=== PATIENT | female | born 1975 | race Caucasian/White ===

== ENCOUNTER 2018-08-27 23:34 | Inpatient (IN) | payer OTHER ==
[~2018-08-27] VITALS: Ht 165.1 cm; Wt 81.7 kg
--- NOTE | ~2018-08-27 | EKG ---
[place], [place] ELECTROCARDIOGRAM REPORT NAME: NENO HERNANDEZ UNIT #: [id number] ROOM: 405 DOCTOR: YELITZA DRAFT REPORT BIRTHDATE: [birth year] [facility] Test Date: 2018-08-28 Test Time: 02:31:58 Pat Name: NENO HERNANDEZ Department: Room: [facility] Gender: F Process Control Specialist: Edward Nesbitt : 1975 Requested By: BRETT DAVIS Order Number: [id number] Reading MD: Shun John MD Measurements Intervals [place] Rate: 58 P: 59 W[place]: 146 QRS: 41 QRSD: 102 T: 37 QT: 461 QTc: 453 Interpretive Statements Sinus rhythm Compared to previous day, PVC is no longer seen Otherwise, no change Electronically Signed On 08-28-2018 15:47:32 PDT by Shun John MD CM:EKGRPT:ELECTROCARDIOGRAM REPORT [id number] BRETT DAVIS MD EPIPHANY DRAFT REPORT BRETT DAVIS MD
--- NOTE | ~2018-08-27 | EKG ---
[place], [place] ELECTROCARDIOGRAM REPORT NAME: NENO HERNANDEZ UNIT #: [id number] ROOM: 405 DOCTOR: EPIPHANY DRAFT REPORT BIRTHDATE: [birth year] [facility] Test Date: 2018-08-27 Test Time: 23:41:16 Pat Name: NENO HERNANDEZ Department: Room: 405 Gender: F Systems Support Specialist: Elio Welsh : 1975 Requested By: BRETT DAVIS Order Number: [id number] Reading MD: Shun John MD Measurements Intervals [place] Rate: 77 P: 74 [place]: 140 QRS: 38 QRSD: 96 T: 60 QT: 405 QTc: 459 Interpretive Statements Sinus rhythm with occasional PVC Baseline wander in lead(s) I,II,aVR,V3,V4,V5,V6 Electronically Signed On 08-28-2018 15:45:55 PDT by Shun John MD CM:EKGRPT:ELECTROCARDIOGRAM REPORT [id number] BRETT DAVIS MD EPIPHANY DRAFT REPORT BRETT DAVIS MD
--- NOTE | ~2018-08-27 | EKG ---
[place], [place] ELECTROCARDIOGRAM REPORT NAME: NENO HERNANDEZ UNIT #: [id number] ROOM: 405 DOCTOR: EPIPHANY DRAFT REPORT BIRTHDATE: [birth year] [facility] Test Date: 2018-08-28 Test Time: 05:26:50 Pat Name: NENO HERNANDEZ Department: Room: 405 Gender: F Natural Resources Extension Educator: Edward Nesbitt : 1975 Requested By: BRETT DAVIS Order Number: [id number] Reading MD: Shun John MD Measurements Intervals [place] Rate: 58 P: 63 [place]: 145 QRS: 45 QRSD: 105 T: 54 QT: 454 QTc: 446 Interpretive Statements Sinus rhythm No change from earlier ECG this date. Electronically Signed On 08-28-2018 15:48:47 PDT by Shun John MD CM:EKGRPT:ELECTROCARDIOGRAM REPORT [id number] BRETT DAVIS MD EPIPHANY DRAFT REPORT BRETT DAVIS MD
--- NOTE | ~2018-08-27 | PR ---
[place], [place] PROGRESS NOTE NAME: NENO HERNANDEZ [facility] #: [id number] UNIT #: [id number] ROOM: 405 DOCTOR: GINI YIP MD BIRTHDATE: [birth year] DOS: 08/29/2018 CARDIOLOGY PROGRESS NOTE SUBJECTIVE: The patient was seen at her bedside today 08/29/2018 for followup of chest discomfort. Since her hospitalization, her symptoms have improved. Once again, she notes that if she stretches her left side that the symptoms improve. She has not had any changes on the monitor and cardiac biomarkers remain normal. PHYSICAL EXAMINATION: VITAL SIGNS: Today, her pulse is 60 and regular, blood pressure is 102/54. She is afebrile. NECK: Supple. She has no jugular distention. Carotids are full. LUNGS: Respirations are unlabored. Chest is clear. HEART: Has a regular rhythm with a soft S4 gallop. She has a grade 2/6 systolic ejection murmur along the left sternal border, but no diastolic murmurs. The PMI is not displaced. There is no precordial heave, lift or thrill. ABDOMEN: Soft and normally active. EXTREMITIES: Showed no edema. IMPRESSION: 1. Atypical chest pain. 2. History of Anson thyroiditis. 3. History of fibromyalgia. PLAN: We will proceed with an exercise myocardial perfusion study and echocardiogram within the next 24 hours. Further recommendations will depend upon the results of her testing. I thank the hospitalist physicians for asking our advice regarding her care. GINI YIP MD CM:PNTRANS [id number] GINI YIP MD 08/29/18 2213 interface
--- NOTE | ~2018-08-27 | PR ---
[place], [place] PROGRESS NOTE NAME: NENO HERNANDEZ [facility] #: [id number] UNIT #: [id number] ROOM: 405 DOCTOR: GINI YIP MD BIRTHDATE: [birth year] DOS: 08/30/2018 SUBJECTIVE: The patient was seen today 08/30/2018 in the Cardiology Department prior to her stress test. She states that she continues to have an aching sensation in her left anterior chest and did have sharp pains in her chest last evening when she tried to stretch her muscles. She denies diaphoresis, shortness of breath or nausea. PHYSICAL EXAMINATION: VITAL SIGNS: Pulse is 73 and regular, blood pressure is 107/65. She is afebrile. NECK: Supple. She has no jugular distention. Carotids are full. LUNGS: Respirations are unlabored. Her chest is clear to auscultation and percussion. HEART: Has a regular rhythm. She has a fourth heart sound, but no third heart sound. ABDOMEN: Benign. EXTREMITIES: Showed no edema. IMPRESSION: 1. Atypical chest pain. 2. History of Anson thyroiditis. 3. History of fibromyalgia. PLAN: We will proceed with an exercise stress test today. Further recommendations will depend upon the results of the test. I thank the hospitalist physicians for asking our advice regarding her care. GINI YIP MD CM:PNTRANS [id number] GINI YIP MD 08/30/18 1207 interface
--- NOTE | ~2018-08-27 | CON ---
[place], [place] REPORT OF CONSULTATION NAME: NENO HERNANDEZ [facility] [id number] UNIT #: [id number] ROOM: 405 DOCTOR: GINI YIP MD BIRTHDATE: [birth year] DOS: 08/28/2018 REASON FOR CONSULTATION: Chest pain. HISTORY OF PRESENT ILLNESS: The patient is a 43-year-old woman who does have a history of morbid obesity, for which she underwent gastric bypass surgery in 2008. As part of her evaluation prior to the surgery, she did undergo a stress test which showed anteroapical ischemia; however, a subsequent cardiac catheterization was reportedly normal and she underwent the surgery uneventfully. She states that since that time, she has had episodes of chest pain. She mostly associates these with when her blood count is low. She has had a long history of anemia and when her blood count is less than 7, she states that her chest will ache. The night before last while at rest, she developed a pain in the left side of her chest, which was similar to what she has had in the past. This was located to the area behind her breast. She states that it radiated into her back, neck and left arm. She has had pleuritic chest pains in the past, but this one was different in that she had radiation of the pain and there was not much of a pleuritic component. She waited until yesterday and continued to have the pain, and therefore came into the hospital last evening. Despite the fact that she has had pain for over 36 hours now, she has no EKG changes and serial cardiac troponin levels have been entirely normal. The patient does note that if she lays on her right side and stretches her left arm over her head, the pains will improve. She also notes that the sharp shooting pains that she had going into her neck and arm have decreased dramatically since her arrival to the hospital, but the aching sensation in her left chest has not changed much. She denies that the pains are associated with eating. As noted, she has had pleuritic pains in the past, but not this time. She denies any associated nausea, vomiting, diaphoresis, shortness of breath, lightheadedness or syncope. PAST MEDICAL AND SURGICAL HISTORY: Includes: 1. Morbid obesity. 2. Gastric bypass at [facility] in 2008. 3. Preoperative stress test in 2008, reportedly abnormal with anteroapical ischemia. The patient states that she did have a catheterization subsequently at the [facility], which showed no evidence for ischemia. 4. History of Anson thyroiditis with chronic hypothyroidism, on replacement. 5. Fibromyalgia. 6. Anemia intermittently since her gastric bypass. 7. No history of hypertension, diabetes, myocardial infarction or stroke. 8. History of section in 1990, hernia repair in 2005 and hysterectomy in 2018. FAMILY HISTORY: Positive for diabetes and hypertension, but no family member has had early coronary disease. [place], [place] REPORT OF CONSULTATION NAME: NENO HERNANDEZ UNIT #: [id number] ROOM: 405 DOCTOR: GINI YIP MD BIRTHDATE: [birth year] MEDICATIONS: Prior to admission, [place] Thyroid 90 mg daily. ALLERGIES: The patient lists an allergy to ASPIRIN. REVIEW OF SYSTEMS: The patient denies diplopia or loss of vision. She denies focal weakness. She denies lightheadedness or syncope. She denies orthopnea, PND or peripheral edema. She denies fevers, chills, sweats or recent weight change. She denies cough or hemoptysis. She denies any hematemesis. She does occasionally have pleuritic chest pain in the left side of her chest, but this occurs at random. She denies change in bowel or bladder habits, and states that she is typically constipated. She denies any dysuria, or blood in her stools or urine. She denies any skin rashes. She denies heat or cold intolerance. She does complain of chronic fatigue and does have muscle aches which are attributed to fibromyalgia. Remainder of the review of systems is negative except as noted above. SOCIAL HISTORY: The patient is a for the last 4 years. She did smoke in the past, but quit over 10 years ago. She began vaping a few years ago and continues to do that. She does not consume significant amounts of alcohol. PHYSICAL EXAMINATION: GENERAL: The patient is a well-nourished white female who is awake, alert and oriented. VITAL SIGNS: Pulse is 70 and regular, blood pressure is 100/79. She is afebrile. She weighs 81.7 kg and has a body mass index of 30. HEENT: Normocephalic and atraumatic. Extraocular muscles are intact. Sclerae are clear. Pupils are equal, round and react to light. The oral mucosa is moist. Tongue is midline. NECK: Supple. She has no jugular distention. Carotids are full. I heard no bruits. She had no neck or supraclavicular masses, and no thyromegaly. LUNGS: Respirations are unlabored. Her chest is clear to auscultation and percussion. She has no presacral edema or chest wall tenderness. I could not reproduce her chest pain by palpation of her back, spine, shoulder or anterior chest wall. CARDIOVASCULAR: Heart has a regular rhythm. She has no gallops. She has a grade 2/6 systolic ejection murmur along the left sternal border, which radiates toward the base. No diastolic murmurs are present. The PMI is not displaced and there is no precordial heave, lift or thrill. ABDOMEN: Soft and normally active without masses, organomegaly, bruits or tenderness. EXTREMITIES: Showed no clubbing, cyanosis or edema. There were no palpable cords. She had no Homans sign. Pedal pulses were palpable in the feet bilaterally. IMAGING: I reviewed her electrocardiogram which showed sinus rhythm, no abnormal tracings. LABORATORY DATA: Review of her lab studies do show anemia with a hemoglobin of 10.1, white count of 5100, platelet count of 251,000 and hypokalemia with a [place], [place] REPORT OF CONSULTATION NAME: NENO HERNANDEZ UNIT #: [id number] ROOM: 405 DOCTOR: GINI YIP MD BIRTHDATE: [birth year] potassium of 3.1. She also has a mildly depressed calcium level at 7.8, even though her albumin level is normal at 3.5. Total cholesterol is 148, LDL is 81, HDL is 51, triglycerides are 79. Hemoglobin A1c is normal at 4.7. Total TSH is 1.060, free T4 is slightly low at 0.69. Vitamin D level is low at 18.1. IMPRESSIONS: 1. Atypical chest pain. The patient has had intermittent chest pain without provocation for many years. She does think that it is related to her periods of anemia, but her blood count today is relatively normal for her. Despite the fact that her pain has been persistent for over 36 hours, she still has no EKG changes or elevation in troponin, making a cardiac source unlikely. This most likely is related to a musculoskeletal pain. 2. History of Anson's thyroiditis. 3. History of fibromyalgia. PLAN: At this point, I think it is most likely that her pains are noncardiac in origin. We will proceed with an exercise myocardial perfusion study and echocardiogram to evaluate her chest pain and heart murmur. If these studies are normal, then no other cardiac workup would be indicated and a musculoskeletal etiology should be considered. I thank the hospitalist physicians for asking our advice regarding the patient's care. GINI YIP MD CM:CONSTR:REPORT OF CONSULTATION 1514 08/29/18 0252 interface
[~2018-08-27 23:34] MED LIST: ARMOUR THYROID90 MG PO; CELEXA40 MG PO; HYDROCODONE BIT1 T11 PO; MOTRIN800 MG PO; NAPROSYN500 MG PO; NORCO 325 MG-51 TAB PO; PEN-V500 MG PO; PENICILLIN VK500 MG PO; PERIDEX 480 ML480 ML PO; Peridex 473 ML473 ML PO; Synthroid,Levo50 MCG PO
[2018-08-27 23:35] VITALS: BP 128/57
[2018-08-28] VITALS (9 sets, daily range): BP systolic 100–112; BP diastolic 43–79
[2018-08-28 00:02] LABS: BASO # 0.1 10*3/uL (0.0-0.1); BASO % 0.8 % (0.0-1.0); EOS # 0.1 10*3/uL (0.0-0.4); EOS % 0.9 % (1.0-4.0); HEMATOCRIT 34.3 % (37.0-47.0); HEMOGLOBIN 10.9 g/dl (12.0-16.0); LYMPH # 1.7 10*3/uL (1.3-4.4); LYMPH % 22.8 % (27.0-41.0); MEAN CELL VOLUME 92.7 fl (81.0-99.0); MEAN CORPUSCULAR HGB 29.5 pg (27.0-31.0); MEAN CORPUSCULAR HGB CONC 31.8 g/dl (33.0-37.0); MEAN PLATELET VOLUME 10.7 fl (9.6-12.3); MONO # 0.8 10*3/uL (0.1-1.0); MONO % 10.1 % (3.0-9.0); NEUT % 65.1 % (47.0-73.0); PLATELET COUNT AUTOMATED 295 10*3/uL (130-400); RED CELL DISTRI WIDTH 13.6 % (0-14.5); WHITE BLOOD COUNT 7.6 10*3/uL (4.8-10.8)
[2018-08-28 00:12] LABS: ACT PARTIAL THROMBO TIME 30.6 SECONDS (20.8-31.5)
[2018-08-28 00:15] LABS: ALBUMIN 3.8 gm/dl (3.1-4.5); ALKALINE PHOSPHATASE 82 U/L (45-117); BUN 21 mg/dl (7-24); CHLORIDE 106 mmol/L (98-107); CREATININE 0.76 mg/dL (0.55-1.02); POTASSIUM 3.8 mmol/L (3.5-5.1); SGOT/AST 19 IU/L (3-35); SGPT/ALT 27 U/L (12-78); SODIUM 138 mmol/L (136-145); TOTAL PROTEIN 7.1 gm/dL (6.4-8.2); TROPONIN I < 0.015 ng/ml (<0.045)
[2018-08-28 00:35] LABS: CLARITY CLEAR (CLEAR); COLOR YELLOW (YELLOW); GLUCOSE NEGATIVE (NEGATIVE)
[2018-08-28 00:36] LABS: BILIRUBIN NEGATIVE (NEGATIVE); BLOOD NEGATIVE (NEGATIVE); KETONE NEGATIVE (NEGATIVE); LEUKO ESTERASE NEGATIVE (NEGATIVE); NITRITE NEGATIVE (NEGATIVE); SPECIFIC GRAVITY 1.005 (1.005-1.030); UROBILINOGEN 0.2 E.U./dl (0.2-1.0)
[2018-08-28 00:42] LABS: RBC 0-2 rbc/hpf (0-2)
[2018-08-28 06:18] LABS: BASO % 0.6 % (0.0-1.0); EOS # 0.1 10*3/uL (0.0-0.4); EOS % 1.6 % (1.0-4.0); HEMATOCRIT 32.1 % (37.0-47.0); HEMOGLOBIN 10.1 g/dl (12.0-16.0); LYMPH # 1.6 10*3/uL (1.3-4.4); LYMPH % 32.3 % (27.0-41.0); MEAN CELL VOLUME 93.3 fl (81.0-99.0); MEAN CORPUSCULAR HGB 29.4 pg (27.0-31.0); MEAN CORPUSCULAR HGB CONC 31.5 g/dl (33.0-37.0); MEAN PLATELET VOLUME 10.7 fl (9.6-12.3); MONO # 0.4 10*3/uL (0.1-1.0); MONO % 7.7 % (3.0-9.0); NEUT # 2.9 10*3/uL (2.3-7.9); NEUT % 57.6 % (47.0-73.0); PLATELET COUNT AUTOMATED 251 10*3/uL (130-400); RED BLOOD COUNT 3.44 10*6/uL (4.10-5.10); RED CELL DISTRI WIDTH 13.7 % (0-14.5); WHITE BLOOD COUNT 5.1 10*3/uL (4.8-10.8)
[2018-08-28 06:29] LABS: ALBUMIN 3.5 gm/dl (3.1-4.5); BUN 16 mg/dl (7-24); CHLORIDE 106 mmol/L (98-107); POTASSIUM 3.1 mmol/L (3.5-5.1); SODIUM 139 mmol/L (136-145)
[2018-08-28 06:38] LABS: ALKALINE PHOSPHATASE 69 U/L (45-117); CHOLESTEROL 148 mg/dL (<200); CREATININE 0.63 mg/dL (0.55-1.02); FREE T4 0.69 ng/dl (0.76-1.46); HDL CHOLESTEROL 51 mg/dl (40-60); LDL CHOLESTEROL 81 mg/dL (9-159); PHOSPHOROUS 2.9 mg/dL (2.5-4.9); SGOT/AST 16 IU/L (3-35); SGPT/ALT 25 U/L (12-78); TOTAL PROTEIN 6.4 gm/dL (6.4-8.2); TRIGLYCERIDES 79 mg/dl (<150); VLDL CHOLESTEROL 16 mg/dL (6-40)
[2018-08-28 08:39] LABS: VITAMIN D, 25-HYDROXY 18.1 ng/mL (30-100)
[2018-08-29] VITALS: BP 113/63
[2018-08-29 07:53] VITALS: BP 112/54
[2018-08-29 12:00] VITALS: BP 102/54
[2018-08-29 16:00] VITALS: BP 116/60
[2018-08-29 20:00] VITALS: BP 116/56
[2018-08-30] VITALS: BP 105/53
[2018-08-30 08:00] VITALS: BP 107/65
[2018-08-30 12:00] VITALS: BP 100/53
[2018-08-30 16:00] VITALS: BP 103/54
== END 2018-08-30 17:04 | disposition home or self-care (01) | DRG 313 ==
LOC: ED 23:34 → 4E 08-28 00:31 → EDHOLD 08-28 00:31 → 4E 08-28 00:39
PROVIDERS: Emergency Medicine Emergency Medical Services; Internal Medicine
PROC: 4A02XM4 Measurement of Cardiac Total Activity, External Approach (ICD-10-PCS; principal; 2018-08-30)
PROC: 3E073KZ Introduction of Other Diagnostic Substance into Coronary Artery, Percutaneous Approach (ICD-10-PCS; 2018-08-30)
DX: R07.89 Other chest pain (principal); D64.9 Anemia, unspecified; E03.9 Hypothyroidism, unspecified; M79.7 Fibromyalgia; E83.51 Hypocalcemia; E87.6 Hypokalemia; E83.41 Hypermagnesemia; E66.01 Morbid (severe) obesity due to excess calories; I10 Essential (primary) hypertension; E06.3 Autoimmune thyroiditis; Z88.6 Allergy status to analgesic agent; Z90.710 Acquired absence of both cervix and uterus; Z83.3 Family history of diabetes mellitus; Z98.84 Bariatric surgery status; Z82.49 Family history of ischemic heart disease and other diseases of the circulatory system; Z68.28 Body mass index [BMI] 28.0-28.9, adult

== ENCOUNTER 2019-05-04 22:02 | Emergency (ER) | payer MEDICAID ==
[~2019-05-04] VITALS: Ht 165.1 cm; Wt 86.2 kg
[2019-05-04 22:05] VITALS: BP 111/67
[2019-05-04] MEDS ORDERED: ANAPROX DS550 MG PO (22:48)
== END 2019-05-04 23:06 | disposition home or self-care (01) ==
LOC: ED 22:02
DX: S70.11XA Contusion of right thigh, initial encounter (principal); Z79.899 Other long term (current) drug therapy; W17.89XA Other fall from one level to another, initial encounter; Y93.89 Activity, other specified; Y92.828 Other wilderness area as the place of occurrence of the external cause; Y99.8 Other external cause status

== ENCOUNTER 2019-05-13 03:49 | Emergency (ER) | payer MEDICAID ==
[~2019-05-13] VITALS: Ht 165.1 cm; Wt 88.5 kg
[~2019-05-13 03:49] MED LIST changes: +ANAPROX DS550 MG PO
[2019-05-13 03:51] VITALS: BP 122/53
[2019-05-13 07:28] LABS: BASO # 0.1 10*3/uL (0.0-0.1); BASO % 1.1 % (0.0-1.0); EOS # 0.1 10*3/uL (0.0-0.4); EOS % 1.8 % (1.0-4.0); HEMATOCRIT 30.8 % (37.0-47.0); HEMOGLOBIN 9.8 g/dl (12.0-16.0); LYMPH # 1.7 10*3/uL (1.3-4.4); LYMPH % 31.4 % (27.0-41.0); MEAN CELL VOLUME 89.5 fl (81.0-99.0); MEAN CORPUSCULAR HGB 28.5 pg (27.0-31.0); MEAN CORPUSCULAR HGB CONC 31.8 g/dl (33.0-37.0); MEAN PLATELET VOLUME 9.7 fl (9.6-12.3); MONO # 0.5 10*3/uL (0.1-1.0); MONO % 8.3 % (3.0-9.0); NEUT # 3.2 10*3/uL (2.3-7.9); PLATELET COUNT AUTOMATED 309 10*3/uL (130-400); RED BLOOD COUNT 3.44 10*6/uL (4.10-5.10); RED CELL DISTRI WIDTH 16.7 % (0-14.5); WHITE BLOOD COUNT 5.6 10*3/uL (4.8-10.8)
[2019-05-13 07:38] LABS: ACT PARTIAL THROMBO TIME 29.9 SECONDS (20.0-32.1); INTERNATIONAL NORM RATIO 0.9 (2.0-3.5)
[2019-05-13 07:40] LABS: ALBUMIN 3.6 gm/dl (3.1-4.5); ALKALINE PHOSPHATASE 73 U/L (45-117); BUN 11 mg/dl (7-24); CHLORIDE 110 mmol/L (98-107); CREATININE 0.58 mg/dL (0.55-1.02); POTASSIUM 3.5 mmol/L (3.5-5.1); SGOT/AST 18 IU/L (3-35); SGPT/ALT 29 U/L (12-78); SODIUM 141 mmol/L (136-145); TOTAL PROTEIN 7.2 gm/dL (6.4-8.2)
[2019-05-13 07:46] LABS: RETICULOCYTE % 1.8 % (0.50-2.50)
[2019-05-13 07:54] LABS: IRON 30 ug/dL (50-170); TOTAL IRON BINDING CAPACITY 414 ug/dl (250-450)
== END 2019-05-13 08:01 | disposition home or self-care (01) ==
LOC: ED 03:49
PROVIDERS: Emergency Medicine
DX: S70.11XA Contusion of right thigh, initial encounter (principal); D64.9 Anemia, unspecified; E03.9 Hypothyroidism, unspecified; Z79.899 Other long term (current) drug therapy; Z90.710 Acquired absence of both cervix and uterus; W17.89XA Other fall from one level to another, initial encounter; Y93.89 Activity, other specified; Y92.828 Other wilderness area as the place of occurrence of the external cause; Y99.8 Other external cause status

== ENCOUNTER 2024-06-20 15:27 | Emergency (ER) | payer SELFPAY ==
[~2024-06-20] VITALS: Ht 165.1 cm; Wt 119.3 kg
[2024-06-20] MEDS ORDERED: ACETAMINOPHEN 325 MG TAB PO ONE (16:00)
[2024-06-20] MEDS ORDERED: SODIUM CHLORIDE 0.9% 1,000 ML IV ONE (16:00)
[2024-06-20] MEDS ORDERED: Ketorolac Tromethamine 15 MG/ML VIAL IV ONE (16:00)
[2024-06-20 16:13] LABS: BILIRUBIN Negative (Negative); BLOOD Trace-Lysed (Negative); CLARITY Clear (Clear); COLOR Yellow (Yellow); GLUCOSE Negative (Negative); KETONE Negative (Negative); LEUKO ESTERASE Negative (Negative); NITRITE Negative (Negative); PH 5.5 (4.5-8.0); SPECIFIC GRAVITY <= 1.005 (1.001-1.030); UROBILINOGEN 0.2 E.U./dl (0.0-1.0)
[2024-06-20 16:14] LABS: BASO % 0.5 % (0.0-1.0); EOS % 0.6 % (1.0-4.0); HEMATOCRIT 27.4 % (37.0-47.0); LYMPH # 1.4 10*3/uL (1.3-4.4); LYMPH % 22.5 % (27.0-41.0); MEAN CORPUSCULAR HGB 22.8 pg (27.0-31.0); MEAN CORPUSCULAR HGB CONC 28.8 g/dl (33.0-37.0); MEAN PLATELET VOLUME 9.5 fl (9.6-12.3); MONO # 0.4 10*3/uL (0.1-1.0); NEUT # 4.3 10*3/uL (2.3-7.9); NEUT % 70.1 % (47.0-73.0); PLATELET COUNT AUTOMATED 487 10*3/uL (130-400); RED BLOOD COUNT 3.47 10*6/uL (4.10-5.10); RED CELL DISTRI WIDTH 18.5 % (0-14.5); WHITE BLOOD COUNT 6.2 10*3/uL (4.8-10.8)
[2024-06-20 16:30] LABS: ACT PARTIAL THROMBO TIME 29.8 SECONDS (20.0-32.1)
[2024-06-20 16:30] LABS: BACTERIA 2+
[2024-06-20 16:34] LABS: ALKALINE PHOSPHATASE 108 U/L (46-116); BUN 10 mg/dl (9-23); CHLORIDE 107 mmol/L (98-107); POTASSIUM 3.6 mmol/L (3.4-5.1); SGPT/ALT 35 U/L (5-49); TOTAL PROTEIN 7.4 gm/dL (6.0-8.0)
[2024-06-20] MEDS ORDERED: Ceftriaxone Sodium 1 GM/10 ML SYR IV ONE (18:10)
[2024-06-20] MEDS ORDERED: CIPRO500 MG PO (18:41)
== END 2024-06-20 18:59 | disposition home or self-care (01) ==
LOC: ED 15:27
PROVIDERS: Internal Medicine
DX: R07.89 Other chest pain (principal); N39.0 Urinary tract infection, site not specified; Z98.890 Other specified postprocedural states; Z90.710 Acquired absence of both cervix and uterus

== ENCOUNTER 2024-07-14 19:30 | Emergency (ER) | payer OTHER ==
[~2024-07-14] VITALS: Ht 165.1 cm; Wt 115.7 kg
[~2024-07-14 19:30] MED LIST changes: +CIPRO500 MG PO
[2024-07-14 19:59] VITALS: BP 137/64
[2024-07-14] MEDS ORDERED: IOHEXOL 300 MG/ML 100 ML VIAL IV ONE (20:40)
[2024-07-14 20:43] LABS: BASO # 0.1 10*3/uL (0.0-0.1); BASO % 1.1 % (0.0-1.0); EOS % 0.5 % (1.0-4.0); HEMATOCRIT 27.4 % (37.0-47.0); LYMPH # 1.7 10*3/uL (1.3-4.4); LYMPH % 27.3 % (27.0-41.0); MEAN CELL VOLUME 76.1 fl (81.0-99.0); MEAN CORPUSCULAR HGB 22.5 pg (27.0-31.0); MEAN CORPUSCULAR HGB CONC 29.6 g/dl (33.0-37.0); MEAN PLATELET VOLUME 9.2 fl (9.6-12.3); MONO # 0.5 10*3/uL (0.1-1.0); MONO % 7.3 % (3.0-9.0); NEUT % 63.5 % (47.0-73.0); PLATELET COUNT AUTOMATED 620 10*3/uL (130-400); RED CELL DISTRI WIDTH 18.5 % (0-14.5); WHITE BLOOD COUNT 6.3 10*3/uL (4.8-10.8)
[2024-07-14 20:54] LABS: BILIRUBIN Negative (Negative); BLOOD Negative (Negative); CLARITY Clear (Clear); COLOR Yellow (Yellow); GLUCOSE Negative (Negative); KETONE Negative (Negative); LEUKO ESTERASE Negative (Negative); NITRITE Negative (Negative); SPECIFIC GRAVITY <= 1.005 (1.001-1.030); UROBILINOGEN 0.2 E.U./dl (0.0-1.0)
[2024-07-14 20:54] LABS: ACT PARTIAL THROMBO TIME 30.3 SECONDS (20.0-32.1)
[2024-07-14 21:02] LABS: EPITHELIAL CELLS 0-2; WBC 0-2 wbc/hpf (0-5)
[2024-07-14 21:05] LABS: ALKALINE PHOSPHATASE 105 U/L (46-116); BUN 6 mg/dl (9-23); CHLORIDE 107 mmol/L (98-107); SGPT/ALT 20 U/L (5-49); TOTAL PROTEIN 7.2 gm/dL (6.0-8.0)
[2024-07-14] MEDS ORDERED: POTASSIUM CHLORIDE 20 MEQ TAB PO ONE (21:35)
[2024-07-14] MEDS ORDERED: Lidocaine Hydrochloride 15 ML UDC PO STA (22:38)
[2024-07-14] MEDS ORDERED: Dicyclomine Hydrochloride 20 MG/10 ML OSYR PO STA (22:38)
[2024-07-14] MEDS ORDERED: MG-AL HYDROXIDE/SIMETICONE 30 ML UDC PO STA (22:38)
[2024-07-14] MEDS ORDERED: PERCOCET 5-3251 EACH PO (23:01)
[2024-07-14] MEDS ORDERED: Acetaminophen/Oxycodone 5 MG/325 MG TABLET PO ONE (23:05)
== END 2024-07-14 23:23 | disposition home or self-care (01) ==
LOC: ED 19:30
PROVIDERS: Nurse Practitioner
DX: R10.30 Lower abdominal pain, unspecified (principal); R07.89 Other chest pain; R06.02 Shortness of breath; G43.909 Migraine, unspecified, not intractable, without status migrainosus; E03.9 Hypothyroidism, unspecified; M79.7 Fibromyalgia; Z90.710 Acquired absence of both cervix and uterus; Z98.890 Other specified postprocedural states

== ENCOUNTER 2024-12-11 21:21 | Emergency (ER) | payer OTHER ==
[~2024-12-11] VITALS: Ht 165.1 cm; Wt 107.5 kg
[~2024-12-11 21:21] MED LIST changes: +PERCOCET 5-3251 EACH PO
[2024-12-11 21:32] VITALS: BP 128/70
[2024-12-11] MEDS ORDERED: CANDICIDAL CAP1 EACH PO (21:34)
[2024-12-11] MEDS ORDERED: DAILY VALUE1 EACH PO (21:34)
[2024-12-11 22:02] LABS: BASO # 0.1 10*3/uL (0.0-0.1); BASO % 0.9 % (0.0-1.0); EOS % 0.1 % (1.0-4.0); HEMATOCRIT 30.6 % (37.0-47.0); MEAN CELL VOLUME 75.2 fl (81.0-99.0); MEAN CORPUSCULAR HGB 21.1 pg (27.0-31.0); MEAN CORPUSCULAR HGB CONC 28.1 g/dl (33.0-37.0); MEAN PLATELET VOLUME 9.5 fl (9.6-12.3); MONO # 0.8 10*3/uL (0.1-1.0); MONO % 11.7 % (3.0-9.0); NEUT % 71.9 % (47.0-73.0); PLATELET COUNT AUTOMATED 438 10*3/uL (130-400); RED BLOOD COUNT 4.07 10*6/uL (4.10-5.10); RED CELL DISTRI WIDTH 21.3 % (0-14.5)
[2024-12-11] MEDS ORDERED: ALBUTEROL 8 GM INHALER INH ONE (22:10)
[2024-12-11 22:25] LABS: ALKALINE PHOSPHATASE 91 U/L (46-116); BUN 8 mg/dl (9-23); CHLORIDE 105 mmol/L (98-107); POTASSIUM 3.9 mmol/L (3.4-5.1); SGPT/ALT 19 U/L (5-49); TOTAL PROTEIN 6.9 gm/dL (6.0-8.0)
[2024-12-11] MEDS ORDERED: ACETAMINOPHEN 325 MG TAB PO ONE (22:55)
== END 2024-12-11 23:24 | disposition home or self-care (01) ==
LOC: ED 21:21
PROVIDERS: Nurse Practitioner
DX: U07.1 COVID-19 (principal); D64.9 Anemia, unspecified; M79.7 Fibromyalgia; G43.909 Migraine, unspecified, not intractable, without status migrainosus; E03.9 Hypothyroidism, unspecified; Z90.710 Acquired absence of both cervix and uterus; Z98.890 Other specified postprocedural states

== ENCOUNTER 2025-01-15 06:15 | Emergency (ER) | payer OTHER ==
[~2025-01-15] VITALS: Ht 165.1 cm; Wt 109.8 kg
[~2025-01-15 06:15] MED LIST changes: +CANDICIDAL CAP1 EACH PO; +DAILY VALUE1 EACH PO
[2025-01-15] MEDS ORDERED: ALBUTEROL HFA 90 MCG (06:33)
[2025-01-15 06:58] LABS: BASO # 0.1 10*3/uL (0.0-0.1); BASO % 0.9 % (0.0-1.0); EOS # 0.1 10*3/uL (0.0-0.4); EOS % 0.8 % (1.0-4.0); HEMATOCRIT 29.4 % (37.0-47.0); MEAN CORPUSCULAR HGB 21.4 pg (27.0-31.0); MEAN CORPUSCULAR HGB CONC 28.2 g/dl (33.0-37.0); MEAN PLATELET VOLUME 9.4 fl (9.6-12.3); MONO # 0.5 10*3/uL (0.1-1.0); MONO % 6.6 % (3.0-9.0); NEUT # 5.3 10*3/uL (2.3-7.9); NEUT % 69.6 % (47.0-73.0); PLATELET COUNT AUTOMATED 435 10*3/uL (130-400); RED BLOOD COUNT 3.87 10*6/uL (4.10-5.10); RED CELL DISTRI WIDTH 19.2 % (0-14.5); WHITE BLOOD COUNT 7.6 10*3/uL (4.8-10.8)
[2025-01-15 07:20] LABS: ALKALINE PHOSPHATASE 84 U/L (46-116); BUN 9 mg/dl (9-23); CHLORIDE 108 mmol/L (98-107); SGPT/ALT 12 U/L (5-49); TOTAL PROTEIN 6.2 gm/dL (6.0-8.0)
[2025-01-15 07:52] VITALS: BP 127/67
[2025-01-15] MEDS ORDERED: MELOXICAM15 MG PO ×2 (10:12→10:21)
== END 2025-01-15 10:15 | disposition home or self-care (01) ==
LOC: ED 06:15
PROVIDERS: Emergency Medicine
DX: R07.89 Other chest pain (principal); R11.0 Nausea; R42 Dizziness and giddiness; D64.9 Anemia, unspecified; Z86.16 Personal history of COVID-19; M79.7 Fibromyalgia; E83.41 Hypermagnesemia; E83.51 Hypocalcemia; E87.6 Hypokalemia; E03.9 Hypothyroidism, unspecified; G43.909 Migraine, unspecified, not intractable, without status migrainosus; Z90.710 Acquired absence of both cervix and uterus; Z98.890 Other specified postprocedural states